=== PATIENT | female | born 2000 | race Caucasian/White ===

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

== ENCOUNTER 2022-12-14 19:10 | Emergency (ER) | payer OTHER ==
--- NOTE | 2022-12-14 20:09 | ED ---
General Adult HPI - General Chief complaint: Animal Bite Stated complaint: dog bites to face and hands Time Seen by Provider: 12/14/22 19:39 Source: patient, family, RN notes reviewed Mode of arrival: wheelchair Limitations: no limitations - History of Present Illness Initial comments: 22 year-old female presents to the emergency department with chief complaint of dog bite. Patient states that she was trying to break up a fight between her 2 dogs and was bitten in the face and the hands. She has lacerations to her right cheek, left cheek, right second finger and left fourth finger. She has an abrasion to her left lower eye lid that does not appear to affect the duct. She does not report any foreign body sensation or changes to her vision. Denies numbness, tingling in her extremities. She states that the dogs are up-to-date on vaccinations. She states that her last tetanus was within the last 5 years. - Related Data Previous Rx's Medication Instructions Recorded Amoxic-Pot Clav 875-125Mg 1 tab PO Q12HR 10 Days #20 tab 12/14/22 [Augmentin 875-125] Allergies Allergy/AdvReac Type Severity Reaction Status Date / Time doxycycline Allergy Unknown Verified 12/14/22 19:14 gluten Allergy Nausea & Verified 12/14/22 19:14 Vomiting & Diarrhea Penicillins Allergy Unknown Verified 12/14/22 19:14 Childhood Review of Systems ROS Statement: Those systems with pertinent positive or pertinent negative responses have been documented in the HPI. ROS Other: All systems not noted in ROS Statement are negative. Past Medical History Past Medical History: No Reported History History of Any Multi-Drug Resistant Organisms: None Reported Past Surgical History: Adenoidectomy, Ear Surgery, Tonsillectomy Past Psychological History: Depression Smoking Status: Vaper Past Alcohol Use History: Rare Past Drug Use History: None Reported General Exam Limitations: no limitations General appearance: alert, in no apparent distress Head exam: Present: other (Multiple lacerations to the patient's face) Eye exam: Present: normal appearance, PERRL, EOMI, periorbital swelling (Swelling and ecchymosis to the left eye). Absent: scleral icterus, conjunctival injection ENT exam: Present: normal exam, mucous membranes moist Neck exam: Present: normal inspection. Absent: tenderness, meningismus, lymphadenopathy Respiratory exam: Present: normal lung sounds bilaterally. Absent: respiratory distress, wheezes, rales, rhonchi, stridor Cardiovascular Exam: Present: regular rate, normal rhythm, normal heart sounds. Absent: systolic murmur, diastolic murmur, rubs, gallop, clicks GI/Abdominal exam: Present: soft, normal bowel sounds. Absent: distended, tenderness, guarding, rebound, rigid Extremities exam: Present: other (Laceration to the right second digit and small abrasion to the left fourth digit, normal range of motion, normal capillary refill, radial pulses 2+) Back exam: Present: normal inspection Neurological exam: Present: alert, oriented X3, CN II-XII intact Psychiatric exam: Present: normal affect, normal mood Skin exam: Present: warm, dry, other (Laceration to the left cheek about 3 cm, laceration/ puncture wound to the left jaw about 1 cm, laceration to the right cheek about 1 cm, puncture wound to the right lateral cheek, laceration to the distal right second digit and distal left fourth digit, patient neurovascularly intact) Course Vital Signs 12/14/22 12/15/22 19:14 00:11 Temperature 98.0 F 97.6 F Pulse Rate 72 65 Respiratory 16 18 Rate Blood Pressure 96/56 102/60 O2 Sat by Pulse 100 99 Oximetry Procedures - Laceration Laceration #1 Consent Obtained: verbal consent Indication: laceration Site: face (Left cheek) Size (cm): 3 Description: linear Depth: simple, single layer Anesthetic Used: lidocaine 1% Anesthesia Technique: local infiltration Pre-repair: wound explored, irrigated extensively (Extensive saline irrigation with 50 mL) Type of Sutures: other (Monofilament) Size of Sutures: 6-0 Number of Sutures: 4 Technique: simple, interrupted Patient Tolerated Procedure: well, no complications Laceration #2 Consent Obtained: verbal consent Indication: laceration Site: face Size (cm): 1 Description: linear Depth: simple, single layer Anesthetic Used: lidocaine 1% Anesthesia Technique: local infiltration Pre-repair: wound explored, irrigated extensively Type of Sutures: other (Monofilament) Size of Sutures: 6-0 Number of Sutures: 1 Technique: simple, interrupted Patient Tolerated Procedure: well, no complications Laceration #3 Consent Obtained: verbal consent Indication: laceration Site: face Size (cm): 1 Description: linear Depth: simple, single layer Anesthetic Used: lidocaine 1% Anesthesia Technique: local infiltration Pre-repair: wound explored, irrigated extensively (Irrigated with 50 mL of saline) Type of Sutures: other (Monofilament) Size of Sutures: 6-0 Number of Sutures: 2 Technique: simple, interrupted Patient Tolerated Procedure: well, no complications Laceration #4 Consent Obtained: verbal consent Indication: laceration Site: hand Size (cm): 2 Description: linear Depth: simple, single layer Anesthetic Used: lidocaine 1% Anesthesia Technique: nerve block Pre-repair: wound explored, irrigated extensively, deep structures intact Type of Sutures: other (Abdomen) Size of Sutures: 6-0 Number of Sutures: 3 Technique: simple, interrupted Patient Tolerated Procedure: well, no complications Medical Decision Making - Medical Decision Making Was pt. sent in by a medical professional or institution (, PA, MED DIR, urgent care, hospital, or senior care...) When possible be specific @ -No Did you speak to anyone other than the patient for history (EMS, parent, family, police, friend...)? What history was obtained from this source @ -No Did you review nursing and triage notes (agree or disagree)? Why? @ -I reviewed and agree with nursing and triage notes Were old charts reviewed (outside hosp., previous admission, EMS record, old EKG, old radiological studies, urgent care reports/EKG's, senior care records)? Report findings @ -No old charts were reviewed Differential Diagnosis (chest pain, altered mental status, abdominal pain women, abdominal pain men, vaginal bleeding, weakness, fever, dyspnea, syncope, headache, dizziness, GI bleed, back pain, seizure, CVA, palpatations, mental health, musculoskeletal)? @ -Differential Musculoskeletal Muscular strain, contusion, ligament sprain, fracture, arthritis, septic arthritis, bursitis, cellulitis, muscle spasm, nerve compression, DVT, arterial occlusion, herpes zoster, electrolyte abnormality, tumor.... This is not meant to be in all inclusive list EKG interpreted by me (3pts min.). @ -None X-rays interpreted by me (1pt min.). @ -None done CT interpreted by me (1pt min.). @ -None done U/S interpreted by me (1pt. min.). @ -None done What testing was considered but not performed or refused? (CT, X-rays, U/S, labs)? Why? @ -None What meds were considered but not given or refused? Why? @ -None Did you discuss the management of the patient with other professionals (professionals i.e. , PA, MED DIR, lab, RT, psych nurse, social services designee, estate tax examiner, teacher, security patrol officer, piano case and bench assembler)? Give summary @ -Dr. Rodriguez discussed the case with Dr. Bran who recommended outpatient follow-up in the office on Friday or Friday Was smoking cessation discussed for >3mins.? @ -[No Ws critical care preformed (if so, how long)? @ -[No Wre there social determinants of health that impacted care today? How? (Homelessness, low income, unemployed, alcoholism, drug addiction, transportation, low edu. Level, literacy, decrease access to med. care, care home, rehab)? @ -[No Ws there de-escalation of care discussed even if they declined (Discuss DNR or withdrawal of care, Hospice)? DNR status @ -[No Mariel co-morbidities impacted this encounter? (DM, HTN, Smoking, COPD, CAD, Cancer, CVA, ARF, Chemo, Hep., AIDS, mental health diagnosis, sleep apnea, morbid obesity)? @ -[Jeet] Ws patient admitted / discharged? Hospital course, mention meds given and route, prescriptions, significant lab abnormalities, going to OR and other pertinent info. @ -Discharged. Patient presented to the emergency department with chief complaint of dog bite. Patient states that she was trying to break up a fight between her 2 dogs and was bitten in the face and the hands. The dog is up-to-date on his vaccinations. Patient states that her last tetanus shot was in the last 5 years. She has swelling and ecchymosis around the left eye. She reports no foreign body sensation or changes in her vision of the left eye. Patient has multiple lacerations and puncture wounds that were extensively irrigated with 50 mL of normal saline each. Patient has a laceration below her left eye on her left cheek about 3 cm which was repaired with 4 simple interrupted sutures loosely. She also has a laceration on her left mandible about 1 cm which was closed with one suture loosely. Laceration to her right cheek about 1.5 cm was closed with 2 simple interrupted sutures loosely. Laceration to her right second digit was loosely approximated with 3 simple interrupted sutures. She has an abrasion on her left lower eyelid that does not appear to be affecting the duct. Dr. Rodriguez assessed the patient as well and is in agreement with this. Dr. Rodriguez discuss this with Dr. Bran recommended outpatient follow-up in the office on Friday or Friday. Patient's mother was concerned about infection as she had experienced sepsis following a dog bite and was requesting IV antibiotics for the patient. Patient's chart states that the patient is ALLERGIC to penicillin medication with unknown reaction. This was discussed with the patient and her mother. Her mother states that she had a rash with penicillin once when she was a child but did not have any anaphylaxis and has taken other penicillins medications without problem. Patient was given an IV dose of Unasyn in the emergency department and antibiotics were sent to patient's pharmacy for outpatient prophylaxis. She advised to follow-up with her primary care physician early next week for evaluation of sutures. Return precautions discussed with patient and mother. Patient discharged in stable condition. Undiagnosed new problem with uncertain prognosis? @ -[No Dug Therapy requiring intensive monitoring for toxicity (Heparin, Nitro, Insulin, Cardizem)? @ -[No Wre any procedures done? @ -Yes laceration repair Dagnosis/symptom? @ -Dog bite Acute, or Chronic, or Acute on Chronic? @ -Acute uncomplicated (without systemic symptoms) or Complicated (systemic symptoms)? @ -Uncomplicated side effects of treatment? @ -[No Eacerbation, Progression, or Severe Exacerbation? @ -[No Pses a threat to life or bodily function? How? (Chest pain, [place], [place], pneumonia, PE, COPD, DKA, ARF, appy, cholecystitis, CVA, Diverticulitis, Homicidal, Suicidal, threat to staff... and all critical care pts) @ -[No Disposition Clinical Impression: Dog bite Disposition: HOME SELF-CARE Condition: Stable Instructions (If sedation given, give patient instructions): Animal Bite (ED) Additional Instructions: Please return to the emergency department for new or worsening symptoms Prescriptions: Amoxic-Pot Clav 875-125Mg [Augmentin 875-125] 1 tab PO Q12HR 10 Days #20 tab Is patient prescribed a controlled substance at d/c from ED?: No Referrals: Toño Hunter MD [Primary Care Provider] - 1-2 days Rajeev Bran MD [STAFF PHYSICIAN] - 1-2 days Time of Disposition: 22:57
[2022-12-14] MEDS ORDERED: LIDOCAINE 1% INJ 10MG/ML (30 ML VIAL-PF) SQ ONE (20:38)
[2022-12-14] MEDS ORDERED: diphenhydrAMINE 50 MG/ML 1 ML VIAL IVP STA (21:22)
[2022-12-14] MEDS ORDERED: AMPICILLIN-SULBACTAM 3 GM in SODIUM CHLORIDE 0.9% 100 ML IVPB STA (21:22)
[2022-12-15 00:13] VITALS: BP 102/60; PULSE 65; RESP 18; TEMP 97.6
== END 2022-12-15 00:12 | disposition home or self-care (01) ==
LOC: EC 19:10
DX: S01.411A Laceration without foreign body of right cheek and temporomandibular area, initial encounter (principal); S01.81XA Laceration without foreign body of other part of head, initial encounter; S61.210A Laceration without foreign body of right index finger without damage to nail, initial encounter; S61.214A Laceration without foreign body of right ring finger without damage to nail, initial encounter; F32.A Depression, unspecified; F17.290 Nicotine dependence, other tobacco product, uncomplicated; Z88.0 Allergy status to penicillin; Z88.8 Allergy status to other drugs, medicaments and biological substances; W54.0XXA Bitten by dog, initial encounter
CPT/HCPCS: 99283; 96365; 96375; 12013; 12001; J1200; J2001; J0295

== ENCOUNTER 2024-04-27 06:28 | Day surgery (SDC) | payer OTHER ==
[2024-04-23 08:41] VITALS: BMI 26.6
[2024-04-27 06:56] VITALS: TEMP 98.4
[2024-04-27] MEDS ORDERED: LIDOCAINE 1% INJ 10MG/ML (20 ML MDV) ONE (07:00)
[2024-04-27] MEDS ORDERED: MIDAZOLAM 2 MG/2 ML VIAL ONE (07:00)
[2024-04-27] MEDS: LACTATED RINGERS 1,000 ML IV SCH (07:00)
[2024-04-27] MEDS ORDERED: PROPOFOL 10 MG/ML 20 ML VIAL IV ONE (07:00)
--- NOTE | 2024-04-27 07:14 | P.PCN ---
Date of Procedure: 04/27/24 Procedure(s) Performed: Brief history: Patient is a pleasant 23-year-old white female scheduled for an elective upper endoscopy as well as colonoscopy as a part of evaluation of abdominal pain, intermittent nausea vomiting, chronic diarrhea for the last 2 years duration. Patient stated she was diagnosed with celiac disease based on serological testing about 2 years ago and since then has been gluten-free diet. She still remains symptomatic Procedure performed: Esophagogastroduodenoscopy Colonoscopy Preoperative diagnosis: Abdominal pain, intermittent nausea vomiting Chronic diarrhea Anesthesia: MAC Procedure: After informed consent was obtained from the patient was brought into the endoscopy unit and IV sedation was administered by anesthesia under continuous monitoring. Initially upper endoscopy was done. The Olympus GF 160 video endoscope was inserted inserted into the mouth and esophagus intubated without any difficulty and was gradually advanced into the stomach and duodenum and carefully examined. The bulb and second part of the duodenum appeared normal. Biopsies were done from the duodenum to evaluate for celiac disease. The scope was then withdrawn into the stomach adequately insufflated with air and upon careful examination the antrum and mild diffuse gastritis and biopsies were done from this area. Mucosa body, cardia and fundus appeared normal. The scope was then withdrawn into the esophagus. The GE junction was located at 40 cm to the incisors. It appeared regular with no erythema erosions or ulcerations. However there was a 5 mm polyp noted at the GE junction that was biopsied. Rest of the esophagus appeared normal. Patient tolerated the procedure well. At this time the patient continued to remain sedation. Initial digital rectal examination was normal. Olympus CF 160 video colonoscope was then inserted into the rectum and gradually advanced to the cecum without any difficulty. Careful examination was performed as the scope was gradually being withdrawn. The prep was excellent. The cecum, ascending colon, transverse colon, descending colon, sigmoid colon and rectum appeared normal. Biopsies were done from the ascending and descending colon rule out microscopic/collagenous colitis. Retroflexion was performed in the rectum and no lesions were noted. Patient tolerated the procedure well. Impression: 1. Upper endoscopy revealed diffuse antral gastritis and a 5 mm GE junction polyp status post biopsy 2. Colonoscopy was within normal limits with no evidence of colorectal neoplasia Recommendations: Findings of this examination were discussed with the patient as well as her family. She was advised to follow-up with the biopsy results. She will be seen in the office in 2 weeks.
[2024-04-27] MEDS: IPRATROPIUM-ALBUTEROL 3 ML NEB INHALATION STA (07:47)
[2024-04-27 07:52] VITALS: RESP 16
[2024-04-27 08:01] VITALS: BP 109/76; PULSE 83
== END 2024-04-27 08:18 | disposition home or self-care (01) ==
LOC: ORWHC2ENDO 06:28
PROVIDERS: ATTEND Internal Medicine Gastroenterology
CPT/HCPCS: 43239; 45380; 81025; 88305